=== PATIENT | female | born 1995 | race Caucasian/White ===

== ENCOUNTER 2017-07-19 21:16 | Emergency (ER) | payer SELFPAY ==
[2017-07-19 22:05] VITALS: TEMP 97.8; BMI 22.6
--- NOTE | 2017-07-19 22:43 | ED PDOC ---
Arrival/HPI - General Chief Complaint: Abdominal Pain Time Seen by Provider: 07/19/17 22:28 Historian: Patient - History of Present Illness Narrative History of Present Illness (Text): 07/19/17 22:35 Buffy Mobley is a 22 year old female, with no significant past medical history, presents to the emergency department complaining of 1 week duration of suprapubic abdominal discomfort associated with increased urinary frequency.No dysuria. Denies any nausea, vomiting or diarrhea. Last menstrual period was June 22. Denies any fever, chills, chest pain, difficulty breathing or any other complaints at this time. Time/Duration: 1 week Symptom Onset: Gradual Symptom Course: Intermittent Severity Level: Mild Activities at Onset: Light Past Medical History - Provider Review Nursing Documentation Reviewed: Yes - Infectious Disease Hx of Infectious Diseases: None - Past Medical History Past Medical History: No Previous - Psychiatric Hx Psychophysiologic Disorder: No Hx Substance Use: No - Past Surgical History Past Surgical History: No Previous - Anesthesia Hx Anesthesia: No - Suicidal Assessment Feels Threatened In Home Enviroment: No Family/Social History - Physician Review Nursing Documentation Reviewed: Yes Family/Social History: No Known Family HX Smoking Status: Never Smoked Hx Alcohol Use: No Hx Substance Use: No Allergies/Home Meds Allergies/Adverse Reactions: Allergies No Known Allergies Allergy (Verified 07/19/17 22:10) Review of Systems - Physician Review All systems were reviewed & negative as marked: Yes - Review of Systems Constitutional: Normal. absent: Fatigue, Fevers Respiratory: Normal. absent: SOB, Cough, Sputum Cardiovascular: Normal. absent: Chest Pain, Palpitations Gastrointestinal: Abdominal Pain (Suprapubic abdominal pain ). absent: Diarrhea , Nausea, Vomiting Genitourinary Female: Normal, Frequency. absent: Vaginal Bleeding, Vaginal Discharge Neurological: Normal. absent: Headache, Dizziness Physical Exam Vital Signs Reviewed: Yes Vital Signs Temp Pulse Resp BP Pulse Ox 07/20/17 02:19 97.8 F 78 18 95/52 L 98 07/19/17 22:04 97.8 F 80 17 103/67 99 Temperature: Afebrile Blood Pressure: Normal Pulse: Regular Respiratory Rate: Normal Appearance: Positive for: Well-Appearing, Non-Toxic, Comfortable Pain Distress: None Mental Status: Positive for: Alert and Oriented X 3 - Systems Exam Head: Present: Atraumatic, Normocephalic Pupils: Present: PERRL Conjunctiva: Present: Normal Mouth: Present: Moist Mucous Membranes Respiratory/Chest: Present: Clear to Auscultation, Good Air Exchange. No: Respiratory Distress, Accessory Muscle Use Cardiovascular: Present: Regular Rate and Rhythm, Normal S1, S2. No: Murmurs Abdomen: Present: Normal Bowel Sounds. No: Tenderness, Distention, Peritoneal Signs, Rebound, Guarding Back: Present: Normal Inspection. No: CVA Tenderness, Midline Tenderness, Paraspinal Tenderness Upper Extremity: Present: Normal Inspection. No: Cyanosis, Edema Lower Extremity: Present: Normal Inspection. No: Edema Neurological: Present: GCS=15, CN II-XII Intact, Speech Normal Skin: Present: Warm, Dry, Normal Color. No: Rashes Psychiatric: Present: Alert, Oriented x 3, Normal Insight, Normal Concentration Medical Decision Making ED Course and Treatment: 07/19/17 22:45 Impression: A 22 year old female who presents to the emergency department complaining of 1 week duration of intermittent suprapubic pain associated with increased urinary frequency. Plan: -- Labs -- HCG -- Urinalysis -- Reassess and disposition Progress Notes: 07/20/17 01:57 EXAM: US , Transvaginal FINDINGS: Gestation: A single intrauterine gestational sac is identified with the mean gestational sac size measuring 8.6 mm, corresponding to an approximate gestational age of less than 4 weeks. No pole or yolk sac is identified on the submitted images. Placenta/amniotic fluid: Cannot be adequately evaluated due to the early gestational age. Uterus/cervix: As above. Ovaries: Unremarkable in echogenicity and size. The right ovary measures 3.7 x 2.4 x 2.9 cm. The left ovary measures 4.0 x 2.8 x 3.8 cm. Normal blood flow. No mass. Free fluid: No free fluid. IMPRESSION: Single intrauterine gestational sac, too small for dates, as detailed above. Short-term followup is recommended. 07/20/17 03:23 Patient is stable for discharge. Advised to follow up with OB within few days and present to emergency department for abdominal cramping, vaginal bleeding or any other symptoms. - Lab Interpretations Lab Results: 07/19/17 22:35 07/19/17 22:35 Lab Results 07/20/17 00:30: Blood Type AB POSITIVE, Antibody Screen Negative, BBK History Checked Patient has bt 07/19/17 22:49: Beta HCG, Quant [id number] H 07/19/17 22:35: WBC 5.6 D, RBC 4.60, Hgb 12.8, Hct 37.7, MCV 82.0, MCH 27.8, MCHC 34.0, RDW 14.3, Plt Count 226, MPV 10.0 07/19/17 22:35: Sodium 138, Potassium 4.1, Chloride 100, Carbon Dioxide 25, Anion Gap 17, BUN 15, Creatinine 0.7, Est GFR ( Amer) > 60, Est GFR (Non- Af Amer) > 60, Random Glucose 78, Calcium 9.2, Total Bilirubin 0.5, AST 28, ALT 32, Alkaline Phosphatase 51, Total Protein 7.7, Albumin 4.3, Globulin 3.4, Albumin/Globulin Ratio 1.3, Lipase 92 07/19/17 22:35: Urine Color Yellow, Urine Appearance Clear, Urine pH 7.0, Ur Specific [place] 1.025, Urine Protein Trace H, Urine Glucose (UA) Negative, Urine Ketones Negative, Urine Blood Negative, Urine Nitrate Negative, Urine Bilirubin Negative, Urine Urobilinogen 0.2, Ur Leukocyte Esterase Negative, Urine RBC 0 - 2, Urine WBC 0 - 2, Ur Epithelial Cells 1 - 3, Amorphous Sediment Few, Urine HCG, Qual Positive - RAD Interpretation Radiology Orders: 07/19/17 23:51 OB TRANSVAGINAL [US] Stat - Scribe Statement The provider has reviewed the documentation as recorded by the Rand Bobo Provider Attestation: All medical record entries made by the Melanieibbruce were at my direction and personally dictated by me. I have reviewed the chart and agree that the record accurately reflects my personal performance of the history, physical exam, medical decision making, and the department course for this patient. I have also personally directed, reviewed, and agree with the discharge instructions and disposition. Disposition/Present on Arrival - Present on Arrival Any Indicators Present on Arrival: No History of DVT/PE: No History of Uncontrolled Diabetes: No Urinary Catheter: No History of Decub. Ulcer: No History Surgical Site Infection Following: None - Disposition Have Diagnosis and Disposition been Completed?: Yes Diagnosis: Early stage of , Abdominal pain during Disposition: HOME/ ROUTINE Disposition Time: :23 Patient Plan: Discharge Patient Problems: Current Active Problems Problem Status Onset Abdominal pain during Acute Early stage of Acute Condition: STABLE Discharge Instructions (ExitCare): (ED), Abdominal Pain in (ED) Additional Instructions: Follow up with your [facility] [employer] this week/rest/no strenuous physical activity until seen by your doctor Referrals: Je Jáurez MD [Staff Provider] - Follow up with primary Forms: [employer] (Colombian)
[2017-07-19 22:58] LABS: HEMATOCRIT 37.7 % (36.0-48.0); MEAN CORPUSCULAR HEMOGLOBIN 27.8 pg (25.0-35.0); RED CELL DISTRIBUTION WIDTH 14.3 % (11.5-14.5); WHITE BLOOD COUNT 5.6 10^3/ul (4.5-11.0)
[2017-07-19 23:15] LABS: ALB/GLOB RATIO 1.3 (1.1-1.8); ALKALINE PHOSPHATASE 51 U/L (38-126); ALT/SGPT 32 U/L (7-56); AST/SGOT 28 U/L (14-36); BILIRUBIN,TOTAL 0.5 mg/dL (0.2-1.3); BLOOD UREA NITROGEN 15 mg/dL (7-21); CALCIUM 9.2 mg/dL (8.4-10.5); CARBON DIOXIDE 25 mmol/L (21-33); CHLORIDE 100 mmol/L (98-107); GFR AFRICAN-AMERICAN > 60; GLUCOSE,RANDOM 78 mg/dL (70-110); LIPASE 92 U/L (23-300); POTASSIUM 4.1 mmol/L (3.6-5.0); SODIUM 138 mmol/L (132-148); TOTAL PROTEIN 7.7 g/dL (5.8-8.3)
[2017-07-19 23:39] LABS: URINE BILIRUBIN NEGATIVE (NEGATIVE); URINE BLOOD NEGATIVE (NEGATIVE); URINE GLUCOSE (UA) NEGATIVE (NEGATIVE); URINE KETONE NEGATIVE (NEGATIVE); URINE LEUKOCYTE ESTERASE NEGATIVE Leu/uL (NEGATIVE); URINE PROTEIN TRACE mg/dL (<30 mg/dL); URINE UROBILINOGEN 0.2 E.U./dL (<1 E.U./dL)
[2017-07-19 23:42] LABS: URINE COLOR YELLOW (YELLOW)
[2017-07-19 23:43] LABS: URINE APPEARANCE CLEAR (CLEAR)
[2017-07-19 23:48] LABS: URINE AMORPHOUS SEDIMENT FEW; URINE RBC 0 - 2 /hpf (0-2); URINE WBC 0 - 2 /hpf (0-6)
--- NOTE | 2017-07-20 01:51 | US ---
EXAM: US , Transvaginal CLINICAL HISTORY: 22 years old, female; Pain; complicated by abdominal or pelvic pain; Lower; First trimester; Gestational age or lmp: 06/22/2017; TECHNIQUE: Real-time transvaginal obstetrical ultrasound of the maternal pelvis and a first trimester with image documentation. Transvaginal imaging was used for better evaluation of the fetus and adnexa. COMPARISON: US - OB TRANSVAGINAL 01/30/2016 3:50:09 PM FINDINGS: Gestation: A single intrauterine gestational sac is identified with the mean gestational sac size measuring 8.6 mm, corresponding to an approximate gestational age of less than 4 weeks. No pole or yolk sac is identified on the submitted images. Placenta/amniotic fluid: Cannot be adequately evaluated due to the early gestational age. Uterus/cervix: As above. Ovaries: Unremarkable in echogenicity and size. The right ovary measures 3.7 x 2.4 x 2.9 cm. The left ovary measures 4.0 x 2.8 x 3.8 cm. Normal blood flow. No mass. Free fluid: No free fluid. IMPRESSION: Single intrauterine gestational sac, too small for dates, as detailed above. Short-term followup is recommended.
[2017-07-20 02:20] VITALS: BP 95/52; PULSE 78
[2017-07-20 04:01] VITALS: RESP 16; O2SAT 99
== END 2017-07-20 03:30 | disposition home or self-care (01) ==
LOC: ED 21:16
DX: O26.891 Other specified pregnancy related conditions, first trimester (principal); R10.9 Unspecified abdominal pain

== ENCOUNTER 2017-08-02 10:32 | Emergency (ER) | payer OTHER ==
[2017-08-02 10:33] VITALS: BMI 22.6
[2017-08-02 10:45] VITALS: TEMP 98.4
--- NOTE | 2017-08-02 11:00 | ED PDOC ---
Arrival/HPI - General Chief Complaint: Female Genitourinary Time Seen by Provider: 08/02/17 10:54 Historian: Patient - History of Present Illness Narrative History of Present Illness (Text): 08/02/17 10:59 22 year old female, , 1 miscarriage, last menstrual period was June 22, present to ED for evaluation of one episode of vaginal bleeding today AM. Pt report, " woke up and noted lot of blood on my underwear". Otherwise, pt denies vaginal bleeding noted after urination, denies fever, chills, headache, dizziness, abd. pain, V/D, back pain, UTI sx, denies vaginal irritation. AMbulate to ED for evaluation, not in any apparent distress. Pt denies care as of now. Pt was seen here on 07/19/17 when work up performed, blood work review, beta quant [id number] and OB US: Single intrauterine gestational sac, too small for dates, as detailed above. Blood type AB positive Past Medical History - Provider Review Nursing Documentation Reviewed: Yes - Travel History Have you recently traveled outside [place] w/in the past 3 mons?: No - Past History Past History: No Previous - Infectious Disease Hx of Infectious Diseases: None - Reproductive Menopause: No - Past Medical History Past Medical History: No Previous - Psychiatric Hx Psychophysiologic Disorder: No Hx Substance Use: No - Past Surgical History Past Surgical History: No Previous - Anesthesia Hx Anesthesia: No - Suicidal Assessment Feels Threatened In Home Enviroment: No Family/Social History - Physician Review Nursing Documentation Reviewed: Yes Family/Social History: No Known Family HX Smoking Status: Never Smoked Hx Alcohol Use: No Hx Substance Use: No Allergies/Home Meds Allergies/Adverse Reactions: Allergies No Known Allergies Allergy (Verified 08/02/17 10:44) Home Medications: Home Meds Medication Instructions Recorded Confirmed No Known Home Med 08/02/17 08/02/17 Review of Systems - Review of Systems Constitutional: Normal Eyes: Normal ENT: Normal Respiratory: Normal Cardiovascular: Normal Gastrointestinal: Normal Genitourinary Female: Vaginal Bleeding. absent: Dysuria, Hematuria, Vaginal Discharge Musculoskeletal: Normal Skin: Normal Neurological: Normal Endocrine: Normal Hemo/Lymphatic: Normal Psychiatric: Normal Physical Exam Vital Signs Temp Pulse Resp BP Pulse Ox 08/02/17 12:24 69 18 104/58 L 98 08/02/17 11:28 98.4 F 72 18 102/52 L 98 08/02/17 10:41 98.4 F 72 16 102/52 L 100 Temperature: Afebrile Blood Pressure: Normal Pulse: Regular Respiratory Rate: Normal Appearance: Positive for: Well-Appearing, Non-Toxic, Comfortable Pain Distress: None Mental Status: Positive for: Alert and Oriented X 3 - Systems Exam Head: Present: Normocephalic Conjunctiva: Present: Normal Mouth: Present: Moist Mucous Membranes, Normal Lips. No: Drooling Neck: Present: Normal Range of Motion Respiratory/Chest: Present: Clear to Auscultation, Good Air Exchange. No: Respiratory Distress, Accessory Muscle Use Cardiovascular: Present: Regular Rate and Rhythm, Normal S1, S2. No: Murmurs Abdomen: Present: Normal Bowel Sounds. No: Tenderness, Distention, Peritoneal Signs Genitourinary/Pelvic Exam: Present: Other (refused) Back: No: CVA Tenderness Upper Extremity: Present: Normal ROM. No: Deformity Lower Extremity: Present: Normal ROM. No: Edema, CALF TENDERNESS, Deformity Neurological: Present: GCS=15, Speech Normal Skin: Present: Warm, Dry, Normal Color. No: Rashes Psychiatric: Present: Alert, Oriented x 3, Normal Insight, Normal Concentration Medical Decision Making ED Course and Treatment: 08/02/17 On re-evaluation, pt is afebrile, hemodynamicaly stable. non-toxic. Tolerate Po well in ED. ENT: no acute findings. neck: Supple Lungs: CTA B/L, BS equal B/L. Abd: benign, (-) guarding, (-) rebound. back: (-) CVA tenderness. NO peripheral edema. Blood work review and appears without acute abnormalities. beta quant c/w US findings of single IUP with appr. GA of 8 wks. Blood type AB positive. Results review and discussed with pt. Pt has clinical findings c/w threatened miscarriage. Pt advised and ref. to f/u with OB in 1-2 days for re-eval. return to Ed if any worsening or new changes. - Lab Interpretations Narrative Lab Interpretation (Text): 08/02/17 13:00 Accession No. 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 FINDINGS: UTERUS: Gestational sac: Single intrauterine gestation. Heart rate: 123 bpm. age (Ultrasound estimated): 7 weeks and 0 days Sondra-gestational hemorrhage: None. Date of delivery (Ultrasound estimated) : 03/21/2018 Uterus measures 9.7 x 7.5 x 8.7 cm. Anteverted and normal in size. CERVIX: Long and closed. No cervical abnormality seen. RIGHT OVARY: Measures 3.8 x 1.4 x 3.5 cm. No mass lesion. Normal flow. LEFT OVARY: Measures 3.9 x 2.2 x 3.4 cm. No solid mass. Normal flow. FREE FLUID: None. OTHER FINDINGS: None. IMPRESSION: Single live intrauterine gestation with mean gestational age of 7 weeks and 0 days. The estimated date of delivery by ultrasound is 03/21/2018. The ultrasound dates lag by 8 days compared with the clinical dates. Clinical correlation and follow-up is advised with Lab Results: 08/02/17 11:39 Lab Results 08/02/17 11:39: Blood Type AB POSITIVE, Antibody Screen Negative, BBK History Checked Patient has bt 08/02/17 11:39: Beta HCG, Quant [id number] H 08/02/17 11:39: WBC 4.0 L D, RBC 4.47, Hgb 12.5, Hct 36.5, MCV 81.7, MCH 28.0, MCHC 34.2, RDW 13.9, Plt Count 164, MPV 10.3, Gran % 42.6 L, Lymph % (Auto) 48.3 H, [place] % (Auto) 7.9 H, Eos % (Auto) 1.0 L, Baso % (Auto) 0.2, Gran # 1.72 , Lymph # 2.0, [place] # 0.3, Eos # 0.0, Baso # 0.01 08/02/17 11:29: Urine Color Yellow, Urine Appearance Clear, Urine pH 8.5, Ur Specific [place] 1.020, Urine Protein 30 H, Urine Glucose (UA) Negative, Urine Ketones 15 H, Urine Blood Large H, Urine Nitrate Negative, Urine Bilirubin Negative, Urine Urobilinogen 0.2, Ur Leukocyte Esterase Trace H, Urine RBC 1 - 3 , Urine WBC 0 - 2, Ur Epithelial Cells 6 - 8, Amorphous Sediment Many, Urine HCG , Qual Positive - RAD Interpretation Radiology Orders: 08/02/17 10:56 OB TRANSVAGINAL [US] Stat Disposition/Present on Arrival - Present on Arrival Any Indicators Present on Arrival: No History of DVT/PE: No History of Uncontrolled Diabetes: No Urinary Catheter: No History of Decub. Ulcer: No History Surgical Site Infection Following: None - Disposition Have Diagnosis and Disposition been Completed?: Yes Diagnosis: Threatened Disposition: HOME/ ROUTINE Disposition Time: 12:55 Patient Plan: Discharge Condition: STABLE Discharge Instructions (ExitCare): Threatened Miscarriage (ED) Additional Instructions: AVOID STRENUOUS ACTIVITY FOR 1-2 WEEKS VITAMINS FOLLOW UP WITH OB IN 1-2 DAYS FOR RE-EVALUATION. RETURN TO ED IF ANY WORSENING OR NEW CHANGES. [facility]errals[facility] [Outside] - Follow up with primary [facility] [Outside] - Follow up with primary [facility] [Outside] - Follow up with primary Forms: [employer] (Macedonian)
[2017-08-02 11:28] VITALS: RESP 18; O2SAT 98
[2017-08-02 11:35] LABS: PH,URINE 8.5 (4.7-8.0); URINE BILIRUBIN NEGATIVE (NEGATIVE); URINE BLOOD LARGE (NEGATIVE); URINE GLUCOSE (UA) NEGATIVE (NEGATIVE); URINE KETONE 15 mg/dL (NEGATIVE); URINE LEUKOCYTE ESTERASE TRACE Leu/uL (NEGATIVE); URINE PROTEIN 30 mg/dL (<30 mg/dL); URINE UROBILINOGEN 0.2 E.U./dL (<1 E.U./dL)
[2017-08-02 11:43] LABS: BASO # 0.01 K/mm3 (0.0-2.0); BASO % 0.2 % (0.0-3.0); GRAN # 1.72 (1.4-6.5); GRAN % 42.6 % (50.0-68.0); HEMATOCRIT 36.5 % (36.0-48.0); LYMPH % 48.3 % (22.0-35.0); MEAN CELL VOLUME 81.7 fl (80.0-105.0); MEAN CORPUSCULAR HGB CONC 34.2 g/dl (31.0-37.0); MEAN PLATELET VOLUME 10.3 fl (7.0-11.0); MONO # 0.3 (0.1-0.6); MONO % 7.9 % (1.0-6.0); RED CELL DISTRIBUTION WIDTH 13.9 % (11.5-14.5)
[2017-08-02 11:44] LABS: URINE APPEARANCE CLEAR (CLEAR); URINE COLOR YELLOW (YELLOW)
[2017-08-02 11:52] LABS: URINE WBC 0 - 2 /hpf (0-6)
[2017-08-02 11:53] LABS: URINE AMORPHOUS SEDIMENT MANY
[2017-08-02 12:24] VITALS: BP 104/58; PULSE 69
--- NOTE | 2017-08-02 12:53 | US ---
PROCEDURE: OB Pelvic Ultrasound HISTORY: vaginal bleeding, COMPARISON: None available. FINDINGS: UTERUS: Gestational sac: Single intrauterine gestation. Heart rate: 123 bpm. age (Ultrasound estimated): 7 weeks and 0 days Sondra-gestational hemorrhage: None. Date of delivery (Ultrasound estimated) : 03/21/2018 Uterus measures 9.7 x 7.5 x 8.7 cm. Anteverted and normal in size. CERVIX: Long and closed. No cervical abnormality seen. RIGHT OVARY: Measures 3.8 x 1.4 x 3.5 cm. No mass lesion. Normal flow. LEFT OVARY: Measures 3.9 x 2.2 x 3.4 cm. No solid mass. Normal flow. FREE FLUID: None. OTHER FINDINGS: None. IMPRESSION: Single live intrauterine gestation with mean gestational age of 7 weeks and 0 days. The estimated date of delivery by ultrasound is 03/21/2018. The ultrasound dates lag by 8 days compared with the clinical dates. Clinical correlation and follow-up is advised with
== END 2017-08-02 13:11 | disposition home or self-care (01) ==
LOC: ED 10:32
DX: O20.0 Threatened abortion (principal); Z3A.01 Less than 8 weeks gestation of pregnancy